=== PATIENT | female | born 1930 | race Caucasian/White ===

== ENCOUNTER 2017-05-04 06:51 | Emergency (ER) | payer OTHER ==
[~2017-05-04] VITALS: Ht 157.5 cm; Wt 60.9 kg
[~2017-05-04 06:51] MED LIST: ANASPAZ0.125 MG PO; CELEBREX200 MG PO; DIOVAN160 MG PO; INVanz IV; LYRICA50 MG PO; Mirapex PO; PLAQUENIL200 MG PO; PRAMIPEXOLE D0.25 M1 PO; Plaquenil PO; Protonix PO
[2017-05-04 10:40] VITALS: BP 150/115
== END 2017-05-04 10:58 | disposition home or self-care (01) ==
LOC: EME 06:51
PROC: 0RSJXZZ Reposition Right Shoulder Joint, External Approach (ICD-10-PCS; principal; 2017-05-04)
DX: S43.004A Unspecified dislocation of right shoulder joint, initial encounter (principal); X58.XXXA Exposure to other specified factors, initial encounter; Y93.89 Activity, other specified; I10 Essential (primary) hypertension; F41.9 Anxiety disorder, unspecified; Z88.5 Allergy status to narcotic agent
CPT/HCPCS: 73030; 99281; 99285; J1885; J2270; J2405